=== PATIENT | male | born 1970 | race Caucasian/White ===

== ENCOUNTER 2016-11-07 10:27 | Emergency (ER) | payer SELFPAY ==
[2016-11-07] MEDS ORDERED: Tetan/Diph/Pertus SYR(Tdap)* 0.5 ML SYR(BOOSTRIX) use SYR IM ONE (11:29)
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
[2016-11-07] MEDS ORDERED: Acetaminophen TAB* 325 MG PO ONE (12:36)
[2016-11-07 12:37] VITALS: BP 135/89
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
== END 2016-11-07 12:42 | disposition home or self-care (01) ==
LOC: UCEAST 10:27
DX: S61.431A Puncture wound without foreign body of right hand, initial encounter (principal); W29.4XXA Contact with nail gun, initial encounter; Y93.H3 Activity, building and construction; Y92.89 Other specified places as the place of occurrence of the external cause; Y99.0 Civilian activity done for income or pay; Z23 Encounter for immunization; F17.210 Nicotine dependence, cigarettes, uncomplicated
CPT/HCPCS: 90471; 90715; 99202; A9270-GY; G0463